=== PATIENT | female | born 1985 | race Caucasian/White ===

== ENCOUNTER 2017-04-17 06:51 | Day surgery (SDC) | payer BC ==
[~2017-04-17] VITALS: Ht 170.2 cm; Wt 62.6 kg
[~2017-04-17 06:51] MED LIST: CEPHALEXIN500 M1 PO; ORUDIS PO
--- NOTE | 2017-04-17 11:21 | Anesthesia Record ---
Anesthesia Record Part I Total IV fluids: 700 EBL (ml): 10 Urine Output: 0 Units of blood given: 0 B/P: 144/99 % SaO2: 95 Pulse: 95 Resps: 12 Temp: 97.4 Patient is: Awake, Stable, Unarousable Stable to PACU at: 0928 at 1121
--- NOTE | 2017-04-17 11:23 | Anesthesia Record ---
Anesthesia Record Part II Discharge time: 957 Destination: Same day surgery PACU nurse assessment review? Yes Patient is: Awake, Stable Anesthesia complications? No at 1126
[2017-04-17 11:38] VITALS: BP 135/96
--- NOTE | 2017-04-17 13:03 | Operative Note ---
Other ENT Procedure Date of Procedure: 04/17/17 Time of Procedure: 814 Procedure performed: Nasal Septoplasty Pre-op diagnosis: 1. Devitaed Nasal Septum 2. Recurrent maxillary sinusitis 3. Allergic Rhinitis Post-op diagnosis: same Surgeon: Monty Oleary Anesthesia: gen Pre-procedure antibiotics: Ancef 1 gm Pre-procedure steroid: Decadron 12 mg Description of procedure: With the patient under general anesthesia face was prepped and draped the eyes were protected with Steri-Strips. The nose was decongested with topical cocaine and 5 mL of 2 percent lidocaine with epi were injected into the nasal septum and nasal antral ya. A LEFT hemitransfixion incision was made in the mucoperichondrial him and mucoperiosteum was elevated from both sides of the nasal septum. There was a severe posterior deviation of the nasal septum with a spur to the RIGHT. And an anterior deviation with the cartilage deformmed to the LEFT. The quadrangular cartilage was from the maxillary crest and trimmed anteriorly, inferiorly, and posteriorly. A very large vomerine spur was removed and a portion of the perpendicular plate of the ethmoid was removed. The maxillary crest was narrowed, when this was done septum could be realigned in the midline and it was held there with 4-0 and 2-0 chromic sutures. Surgicel snow was placed between the flaps before the flaps were closed. The nose was thoroughly irrigated there is no evidence of any active sinus disease. Cortisporin ointment was placed in the nasal vestibules. A drip pad dressing was applied and the patient was sent to recovery in good general condition. EBL (ml): 5 at 1303
== END 2017-04-17 10:55 | disposition home or self-care (01) ==
LOC: SDC 06:51
PROVIDERS: Otolaryngology
PROC: 09CM0ZZ Extirpation of Matter from Nasal Septum, Open Approach (ICD-10-PCS; principal; 2017-04-17 08:15)
DX: J34.2 Deviated nasal septum (principal)
CPT/HCPCS: J0330; J2405